=== PATIENT | male | born 1960 | race Caucasian/White ===

== ENCOUNTER 2017-11-02 19:53 | Inpatient (IN) | payer BC ==
[2017-11-02] MEDS ORDERED: ONDANSETRON 4 MG/2 ML VIAL IVP ONE (20:12)
--- NOTE | 2017-11-02 20:17 | EDPHY ---
H & P Time Seen by Provider: 11/02/17 19:56 HPI/ROS: CHIEF COMPLAINT: Nausea vomiting diarrhea HISTORY OF PRESENT ILLNESS: Patient just got back from [place] he was in [place]. He arrived 2 days ago. Patient started getting sick 5 days ago with multiple episodes of nausea vomiting and diarrhea. He said he received antibiotics including ciprofloxacin but continues to have symptoms today. He is also here because he has spasms in his hands and tingling and his upper extremities bilaterally. Continues to have moderate to severe vomiting and diarrhea. Not bloody or black. Symptoms associated with intermittent abdominal cramping. REVIEW OF SYSTEMS: Eye: no change in vision ENT: no sore throat Cardiac: no chest pain or syncope Pulmonary: no cough or SOB Abdomen: HPI Musculoskeletal: no back pain Skin: no rash Neuro: no headache Constitutional: no fever : no urinary symptoms A comprehensive 10 point review of systems is otherwise negative aside from elements mentioned in the history of present illness. PAST MEDICAL HISTORY: Surgery for diverticulitis and previous bowel obstruction. Appendectomy. Social history: Lives in [place], works as an internal medicine physician. General Appearance: Alert and conversant, cooperative. Eyes: No scleral icterus. ENT, Mouth: Dry mucous membranes. Respiratory: Normal respiratory effort, breath sounds equal, lungs are clear to auscultation. Cardiovascular: Regular rate and rhythm. Gastrointestinal: Abdomen is soft and non tender. Not distended, bowel sounds normal, well-healed midline incision. Does not have focal abdominal tenderness. Neurological: Alert and oriented x3. Normally conversant. Face symmetric, normal movement and sensation in all extremities. Some carpal spasms. Skin: Warm and dry, no rashes. Musculoskeletal: No peripheral edema and no joint swelling. Psychiatric: Not agitated. Emergency Department course/MDM: I-STAT creatinine 7, admit to [facility]. Patient says he got amikacin about 48 hr ago in [place]. Normal saline 2 L IV, more likely to be pre renal as the reason for his creatinine as he clinically is quite dehydrated. Hemoglobin and hematocrit also would be consistent with dehydration. 2101: Discussed with Angela for nephrology. Recommends IV hydration, bladder scan and renal ultrasound, will consult tomorrow. Bladder ultrasound negative for outlet obstruction, bladder not full. Smoking Status: Never smoked Constitutional: Initial Vital Signs Temperature (C) 36.5 C 11/02/17 19:55 Heart Rate 94 11/02/17 19:55 Respiratory Rate 18 11/02/17 19:55 Blood Pressure 124/80 H 11/02/17 19:55 O2 Sat (%) 99 11/02/17 19:55 O2 Delivery Mode Room Air Allergies/Adverse Reactions: Penicillins Allergy (Severe, Verified 11/02/17 20:03) Cephalosporins Allergy (Verified 11/02/17 20:03) shellfish derived [shrimp] Allergy (Verified 11/02/17 20:03) Sulfa (Sulfonamide Antibiotics) Allergy (Verified 11/02/17 20:03) vicro sutrues Allergy (Uncoded 11/02/17 20:03) Home Medications: Medication Instructions Recorded ASPIRIN 11/02/17 Cipro 11/02/17 Flomax 11/02/17 Losartan Potassium 11/02/17 Terazosin HCl 11/02/17 Wellbutrin Sr 11/02/17 Medical Decision Making Differential Diagnosis: Differential for nausea and vomiting considered including but not limited to gastroenteritis, bowel obstruction, metabolic, medication side effect - Data Points Laboratory Results: Laboratory Results 11/02/17 20:35 11/02/17 20:35 11/02/17 11/02/17 11/02/17 20:35 20:35 20:34 WBC 10.20 10^3/uL H 10^3/uL (3.80-9.50) RBC 6.88 10^6/uL H 10^6/uL (4.40-6.38) Hgb 21.0 g/dL H* g/dL (13.7-17.5) POC Hgb 21.4 gm/dL H* gm/dL (13.7-17.5) Hct 57.7 % H % (40.0-51.0) POC Hct 63 % H* % (40-51) MCV 83.9 fL fL (81.5-99.8) MCH 30.5 pg pg (27.9-34.1) MCHC 36.4 g/dL g/dL (32.4-36.7) RDW 15.3 % H % (11.5-15.2) Plt Count 263 10^3/uL 10^3/uL (150-400) MPV 11.0 fL fL (8.7-11.7) Neut % (Auto) 76.4 % H % (39.3-74.2) Lymph % (Auto) 12.2 % L % (15.0-45.0) [place] % (Auto) 10.2 % % (4.5-13.0) Eos % (Auto) 0.0 % L % (0.6-7.6) Baso % (Auto) 0.7 % % (0.3-1.7) Nucleat RBC Rel Count 0.0 % % (0.0-0.2) Absolute Neuts (auto) 7.80 10^3/uL H 10^3/uL (1.70-6.50) Absolute Lymphs (auto) 1.24 10^3/uL 10^3/uL (1.00-3.00) Absolute Monos (auto) 1.04 10^3/uL H 10^3/uL (0.30-0.80) Absolute Eos (auto) 0.00 10^3/uL L 10^3/uL (0.03-0.40) Absolute Basos (auto) 0.07 10^3/uL 10^3/uL (0.02-0.10) Absolute Nucleated RBC 0.00 10^3/uL 10^3/uL (0-0.01) Immature Gran % 0.5 % % (0.0-1.1) Immature Gran # 0.05 10^3/uL 10^3/uL (0.00-0.10) POC Sodium 132 mEq/L L mEq/L (134-144) Sodium 135 mEq/L mEq/L (134-144) POC Potassium 3.3 mEq/L mEq/L (3.3-5.0) Potassium 3.8 mEq/L mEq/L (3.5-5.2) POC Chloride 97 mEq/L mEq/L (97-110) Chloride 86 mEq/L L mEq/L (97-110) Carbon Dioxide 15 mEq/l L mEq/l (22-31) Anion Gap 34 mEq/L H mEq/L (8-16) POC BUN 66 mg/dL H mg/dL (7-23) BUN 68 mg/dL H mg/dL (7-23) Creatinine 6.6 mg/dL H mg/dL (0.7-1.3) POC Creatinine 7.0 mg/dL H mg/dL (0.7-1.3) Estimated GFR 9 Glucose 139 mg/dL H mg/dL (70-100) POC Glucose 138 mg/dL H mg/dL (70-100) Calcium 9.1 mg/dL mg/dL (8.5-10.4) Medications Given: Discontinued Medications Sodium Chloride (Ns) 1,000 mls @ 0 mls/hr IV EDNOW ONE; Wide Open PRN Reason: Protocol Stop: 11/02/17 20:45 Last Admin: 11/02/17 20:51 Dose: 1,000 mls Sodium Chloride (Ns) 1,000 mls @ 0 mls/hr IV EDNOW ONE; Wide Open PRN Reason: Protocol Stop: 11/02/17 20:45 Last Admin: 11/02/17 20:53 Dose: 1,000 mls Ondansetron HCl (Zofran) 4 mg IVP EDNOW ONE Stop: 11/02/17 20:13 Last Admin: 11/02/17 20:39 Dose: 4 mg Point of Care Test Results: 11/02/17 20:34 POC Sodium 132 L POC Potassium 3.3 POC Chloride 97 POC BUN 66 H POC Creatinine 7.0 H POC Glucose 138 H Departure - Departure Disposition: [facility] Inpatient Acute Clinical Impression: Dehydration Renal failure, acute Qualifiers: Acute renal failure type: unspecified Qualified Code(s): N17.9 - Acute kidney failure, unspecified Condition: Serious
[2017-11-02] MEDS ORDERED: NS 1,000 ML IV ONE ×2 (20:44)
[2017-11-02 20:48] LABS: % IMMATURE GRANULYOCYTES 0.5 % (0.0-1.1); ABSOLUTE IMMATURE GRANULOCYTES 0.05 10^3/uL (0.00-0.10); ADD DIFF? NO; ADD MORPH? NO; ADD SCAN? NO; FRAGMENT RBC FLAG 0 (0-99); LIPEMIA HEMOLYSIS FLAG 90 (0-99); MEAN CELL VOLUME 83.9 fL (81.5-99.8); PLATELET CLUMPS FLAG 0 (0-99); RED CELL DISTRIBUTION WIDTH 15.3 % (11.5-15.2)
[2017-11-02 21:02] LABS: ATYPICAL LYMPHOCYTE FLAG 0 (0-99); HEMATOCRIT 57.7 % (40.0-51.0); LEFT SHIFT FLG 20 (0-99); MEAN CELL HEMOGLOBIN 30.5 pg (27.9-34.1); MEAN CELL HEMOGLOBIN CONCENTR. 36.4 g/dL (32.4-36.7); PLATELET COUNT 263 10^3/uL (150-400); RED BLOOD CELL COUNT 6.88 10^6/uL (4.40-6.38)
[2017-11-02 21:07] LABS: ANION GAP 34 mEq/L (8-16); CALCIUM 9.1 mg/dL (8.5-10.4); CARBON DIOXIDE 15 mEq/l (22-31); CHLORIDE 86 mEq/L (97-110); CREATININE 6.6 mg/dL (0.7-1.3); GLOMERULAR FILTRATION RATE 9; GLUCOSE 139 mg/dL (70-100); POTASSIUM 3.8 mEq/L (3.5-5.2); SODIUM 135 mEq/L (134-144)
[2017-11-02] MEDS ORDERED: ONDANSETRON DISINTEGRATING 4 MG TAB PO PRN (21:37)
[2017-11-02 22:28] LABS: ALBUMIN 5.5 g/dL (3.5-5.0); BILIRUBIN,TOTAL 1.2 mg/dL (0.1-1.4); BILIRUBIN-CONJUGATED 0.9 mg/dL (0.0-0.5); BILIRUBIN-UNCONJUGATED 0.3 mg/dL (0.0-1.1); TOTAL PROTEIN 10.4 g/dL (6.3-8.2)
[2017-11-02] MEDS: HEPARIN 5,000 UNIT/0.5 ML SYR SC SCH (22:46)
[2017-11-02] MEDS: NS 1,000 ML IV SCH (22:46)
[2017-11-02] MEDS: ONDANSETRON 4 MG/2 ML VIAL IVP PRN (22:52)
--- NOTE | 2017-11-02 22:52 | GHP ---
[f rep st] HISTORY AND PHYSICAL DATE OF ADMISSION: 11/02/2017 CHIEF COMPLAINT: LEOPOLDO, diarrhea. 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 He was vacationing in [place] and was flying back today. Normally breaks up the trip here in [place]. He started getting sick approximately 5 days ago with multiple episodes of nausea, vomiting, diarrhea. He says he has been having pungent watery diarrhea up to 30 times a day. No blood in stool. Associated with crampy abdominal pain. Was having excessive vomiting, but now dry heaving. Has had minimal p.o. intake; had some Cheerios today. Has tolerated some Pedialyte and Coca-Cola. He thinks it was due to chicken he ate one evening that appeared to be a little red. At the hotel he was prescribed a dose of IM amikacin 750 mg and has taken 3 doses of Cipro. He has been using Phenergan p.r.n. He does have a history of IBS, thus mostly loose stools. No constipation. No dizziness, lightheadedness. No chest pain or shortness of breath. No lower extremity edema. REVIEW OF SYSTEMS: I completed a 10-point review of systems, negative except as noted in the History of Present Illness. PAST MEDICAL HISTORY: 1. 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 Residual left hand and foot numbness. 2. History of perforated diverticulitis. 3. Tinnitus. 4. Benign prostatic hypertrophy. PAST SURGICAL HISTORY: 1. Perforated diverticulitis requiring ileostomy that was reversed. 2. Small-bowel obstructions 4-5 times requiring adhesiolysis on multiple occasions. FAMILY HISTORY: Mother committed suicide after having metastatic lung cancer. Paternal grandmother, history of colon cancer. SOCIAL HISTORY: He is an crm marketing executive. Lives in [place], [place]. No tobacco. Occasional alcohol. No drugs. ALLERGIES: Penicillin (severe), cephalosporin, shellfish, sulfa, Vicryl sutures. MEDICATION: Home medications: Wellbutrin 300 mg daily, losartan 100 mg daily, simvastatin 200 mg daily, Flomax, daily aspirin. PHYSICAL EXAMINATION: VITAL SIGNS: Temperature 36.5, blood pressure 130/75, heart rate 80s, respirations 16, 94% on room air. GENERAL: Well-appearing male , lying in bed, no acute distress. HEENT: PERRLA. Dry mucous membranes. CV: Regular rate and rhythm. No murmurs, gallops, or rubs. No lower extremity edema. LUNGS: Clear. No crackles, wheezing. ABDOMEN: Mildly diffuse, greater in the right lower quadrant but no rebound or guarding. : No suprapubic or CVA tenderness. MUSCULOSKELETAL: 5/5 upper lower extremity strength. NEURO: 2 through 12 intact. PSYCH: Alert, oriented x3. Pleasant. LABS: Sodium 135, potassium 3.8, chloride 86, carbon dioxide 15, anion gap 34, BUN 68, creatinine 6.6, glucose 139, calcium 9.1. WBC 10, hemoglobin 21, hematocrit 57, platelets 263. Abdominal ultrasound: Normal. No hydronephrosis. ASSESSMENT/PLAN: 1. Acute kidney injury: Multifactorial given prerenal etiology with severe dehydration with nausea, vomiting, along with amikacin. His electrolytes are within normal. Will monitor on telemetry and check EKG. Dr. Miller with Nephrology was consulted from the emergency room. Renal ultrasound was negative for hydro. Nephrology will consult in the morning. No evidence of volume overload, stable on room air. Check urine lytes. 2. Polycythemia: Hemoglobin significantly elevated. This is likely secondary to severe dehydration. Will hydrate overnight and repeat in the morning. 3. Bbenign prostatic hypertrophy. Resume Flomax when tolerating p.o. 4. Tinnitus: Takes Wellbutrin. 5. Diarrhea: GI panel is pending, p.r.n. Imodium if C diff negative. 6. Nausea, vomiting: PRN Zofran, Phenergan. Diet: Clears; advance as tolerated. 7. Hypertension: Hold losartan with acute kidney injury. 8. History of perforated diverticulitis. 9. Deep venous thrombosis prophylaxis: Subcu heparin with acute kidney injury. DISPOSITION: Patient warrants inpatient admission given severe LEOPOLDO warranting IV hydration, telemetry and nephrology consult. /[id number]/MODL MTDD
[2017-11-02 23:32] LABS: COLOR AMBER; LEUKOCYTE ESTERASE,URINE NEGATIVE (NEGATIVE); NITRITE,URINE NEGATIVE (NEGATIVE)
[2017-11-03 00:01] LABS: MUCUS 2+ /lpf (NONE-1+); RBC,URINE 50-182 /hpf (0-3); WBC,URINE 15-25 /hpf (0-3)
[2017-11-03 00:02] LABS: HYALINE CASTS >182 /lpf (0-1)
[2017-11-03] MEDS: ACETAMINOPHEN 325 MG TAB PO PRN (01:31)
[2017-11-03] MEDS: PROMETHAZINE HCL 25 MG/ML INJ IVP PRN ×4 (01:32→21:06)
[2017-11-03 05:33] LABS: HEMATOCRIT 49.5 % (40.0-51.0); MEAN CELL HEMOGLOBIN 30.3 pg (27.9-34.1); MEAN CELL HEMOGLOBIN CONCENTR. 36.4 g/dL (32.4-36.7); MEAN CELL VOLUME 83.2 fL (81.5-99.8); RED BLOOD CELL COUNT 5.95 10^6/uL (4.40-6.38); RED CELL DISTRIBUTION WIDTH 14.4 % (11.5-15.2)
[2017-11-03 05:41] LABS: ANION GAP 22 mEq/L (8-16); CALCIUM 7.4 mg/dL (8.5-10.4); CARBON DIOXIDE 17 mEq/l (22-31); CHLORIDE 97 mEq/L (97-110); CREATININE 4.1 mg/dL (0.7-1.3); GLOMERULAR FILTRATION RATE 15; GLUCOSE 116 mg/dL (70-100); MAGNESIUM 1.9 mg/dL (1.6-2.3); POTASSIUM 3.3 mEq/L (3.5-5.2); SODIUM 136 mEq/L (134-144)
[2017-11-03] MEDS: NS 1,000 ML IV SCH ×2 (06:08→14:22)
[2017-11-03] MEDS: HEPARIN 5,000 UNIT/0.5 ML SYR SC SCH ×3 (06:08→21:06)
[2017-11-03] MEDS: ONDANSETRON 4 MG/2 ML VIAL IVP PRN ×3 (06:08→18:06)
--- NOTE | 2017-11-03 07:14 | PDMN ---
Medical Necessity Medical necessity: Pt meets INPT criteria per MD and [facility] M-326 Renal Failure, Acute (creatinine 6.6, BUN 68, severe acute kidney injury with severe dehydration, N/V/D, polycythemia; requiring IVF 125/hr, IV antiemetics per H&P).
--- NOTE | 2017-11-03 09:51 | ASMTCMCOM ---
CM Note CM Note Notes: Patient admitted with LEOPOLDO, likely due to severe dehydration. 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 Nephrology to see today. Will likely discharge independently, no therapies or case management ordered; however, case management can assist with any needs. Date Signed: 11/03/2017 09:51 AM Electronically Signed By:Crystal Rutherford RN
[2017-11-03] MEDS: buPROPion XL 150 MG TAB PO SCH (15:42)
--- NOTE | 2017-11-03 16:16 | HOSPPROG ---
Hospitalist Progress Note Assessment/Plan: Assessment: 57-year-old male presents with acute renal failure in the setting of bacterial enteritis Plan: 1. Acute renal failure. Secondary to hypovolemia in the setting of traumatic volume losses from bacterial enteritis, fraction excretion of sodium 0.6% -renal ultrasound demonstrating no hydronephrosis -initial creatinine 7, downtrend 4.1 today -discussed with Dr. Chris Miller, he has recommended continuing IV fluids to replace ongoing volume losses -counseled the patient and his friends regarding the diagnosis and appropriate treatment plan 2. Bacterial enteritis. Secondary to Salmonella and 2 different E coli organisms, most likely secondary to fecal oral transfer during his recent trip in [place] -discussed with Dr. Simone Cano, he has recommended 7 days of for quinolone treatment given the patient's high severity of illness, initiate levofloxacin 750 mg IV Q 48 hr now -patient is still high risk of worsening morbidity and/or mortality given ongoing volume losses, 8 watery bowel movements thus far, continue IV fluids to replace volume losses -okay for patient to consume solids and liquids, avoid lactose and other potentially diarrhea provoking food types -avoid Imodium -symptomatic antiemetics, abdominal pain medications if needed 3. Metabolic acidosis. Acute, secondary to renal failure and hypokalemia, continue IV normal saline and monitor 4. Acute hyponatremia. Secondary to hypovolemia, continue IV normal saline 5. Hypokalemia. Avoid replacement in the setting of renal failure 6. Acute polycythemia. Secondary to hemoconcentration, monitor hemoglobin level 7. Transaminitis. Acute, potentially secondary to infection, continue to monitor Diet. Regular as tolerated Prophylaxis. High risk patient heparin subcu Code. Full Disposition. Anticipated discharge uncertain this time, requires ongoing inpatient hospitalization for ongoing substantial volume losses and ongoing renal failure. Subjective: Patient with his 9th watery bowel movement today Objective: Vital Signs Temp Pulse Resp BP Pulse Ox 36.6 C 65 20 134/80 H 94 11/03/17 15:51 11/03/17 15:51 11/03/17 15:51 11/03/17 15:51 11/03/17 15:51 Microbiology 11/02/17 23:10 Gastrointestinal Tract Panel (PCR) - Final Stool Salmonella Species E.coli Enteropathogenic(Epec) E.coli Enteroaggregative(Eaec) Laboratory Results 11/03/17 05:00 11/03/17 05:00 11/02/17 11/03/17 11/04/17 05:59 05:59 05:59 Intake Total 1000 2725 Output Total 600 Balance 1000 2125 - Time Spent With Patient Time Spent with Patient: greater than 35 minutes Time Spent with Patient: Greater than 35 minutes spent on this patients care, greater than 50% of time spent counseling, educating, and coordinating care regarding the above mentioned plan. - Physical Exam Constitutional: no apparent distress, not in pain, uncomfortable Cardiovascular: regular rate and rhythym, no murmur, rub, or gallop, No edema Respiratory: no respiratory distress, no rales or rhonchi, clear to auscultation Gastrointestinal: tenderness (Mild to moderate palpation), other ( Hyperactive bowel sounds), No guarding, No distension Skin: other (No skin tenting) Neurologic: AAOx3 Psychiatric: interacting appropriately, not anxious, not encephalopathic, thought process linear ICD10 Worksheet Patient Problems: Problems Problem Status Onset Renal failure, acute Acute Dehydration Acute
--- NOTE | 2017-11-03 17:34 | GCON ---
[f rep st] CONSULTATION NEPHROLOGY CONSULTATION DATE OF CONSULTATION: 11/03/2017 REASON FOR CONSULTATION: Acute renal failure. HPI: I have been asked to evaluate this patient regarding his acute renal failure. 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 While there, he developed severe GI illness, m ainly consisting of profuse watery diarrhea, but also with some accompanying nausea and vomiting and abdominal discomfort. He recalls this began 5 days ago and has been unrelenting. He was treated wit h antibiotics in [place], initially with Cipro, but then he did also receive an IM dose of amikacin. He takes losartan chronically, but held this due to his illness. He denies any lightheadedness or di zziness with standing, but did have severe muscle cramping. He was traveling home to [place] through [place] and due to the ongoing nature of his illness, sought medical attention yesterday evening in [facility] emergency department. Here, he was found to have a creatinine of 7 with fairly n ormal electrolytes. His blood pressure has been normal, but his hemoglobin was elevated at 21.4. He received 2 or 3 L of saline in the ER and since then has been receiving normal saline at 125 cc/hour . His creatinine early this morning, less than 9 hours after his initial labs, was down to 4.1. He has been nonoliguric today, though tells me this afternoon that he believes his urine output has dimi nished over the course of the afternoon in conjunction with an increase in his diarrhea. Renal ultra sound performed last night was negative for hydronephrosis. A fractional excretion of sodium was 0.6 %. Urinalysis was positive for both protein and blood, but also notable for a large number of epithe lial cells, hyaline casts, and mucus. He does recall very little urine output for the past 2 days pr ior to presentation. He did take some NSAIDs, though not in nearly as large a quantity as he would jessi wilson liked. He denies any previous history of renal disease, but believes he likely passed a kidney s tone on one occasion remotely. He checks his own creatinine twice annually, and it has been 0.9 as r ecently as June. Stool cultures are positive for Salmonella and E coli, and he has been started on L evaquin. Of note, his most recent hemoglobin is 18 with a platelet count of 231. He denies any purp uric or petechial skin lesions. Overall, he is feeling much better than on arrival, aside from his o ngoing diarrhea. PAST MEDICAL HISTORY: 1. History of perforated diverticulitis, status post hemicolectomy. 2. Benign prostatic hypertrophy. 3. History of meningeal encephalitis with some residual numbness in his left hand and foot. 4. Small bowel obstructions, he has required lysis of adhesions on occasion. 5. No history of hypertension, though he is treating himself with losartan and Lipitor due to family history of cardiac disease. His typical blood pressure on losartan is 120/80. PAST SURGICAL HISTORY: 1. Hemicolectomy with ileostomy creation secondary to perforated diverticulitis. 2. Multiple exploratory laparotomies with lysis of adhesions related to small bowel obstructions. ALLERGIES: Penicillin, cephalosporins, shellfish, IV dye and sulfa. ADMISSION MEDICATIONS: Wellbutrin, losartan, simvastatin, Flomax and aspirin. As noted above, he he ld his losartan and Flomax during the course of his GI illness. SOCIAL HISTORY: He currently lives in [place], but is originally from [facility]. He is an inter [employer], but also did a residency in psychiatry and a fellowship in geriatrics. He is a nonsmoker and d oes not use illicit drugs. He does drink alcohol occasionally. He is planning to retire in May of next year. FAMILY HISTORY: No family history of renal disease that he is aware of. REVIEW OF SYSTEMS: Positive for rigors with the initiation of his illness. Positive for severe musc le cramps yesterday prior to coming to the hospital, these have resolved. He denies any blood in his stools. His urine output has been minimal prior to his presentation. Aside from other positives in the HPI, the remainder of a 10-organ system review is negative. PHYSICAL EXAM: GENERAL: He is well-appearing, in no acute distress. VITAL SIGNS: Blood pressure 1 34/80, heart rate 65, oxygenation is 94% on room air. He is afebrile. HEENT: Sclerae anicteric. O ral mucosa is moist. NECK: Supple, without JVD or lymphadenopathy. There are no carotid bruits. L UNGS: Completely clear to auscultation bilaterally. BACK: No CVA tenderness. HEART: Regular rate and rhythm; without murmurs, gallops or rubs. ABDOMEN: Soft. Perhaps mildly tender to deep palpat ion, mainly in the right lower quadrant. I do not appreciate hepatosplenomegaly, masses or bruits. EXTREMITIES: There is no lower extremity edema. Pedal pulses are palpable bilaterally. SKIN: Ther e are no skin rashes. NEURO: He is awake, alert and appropriate. There is no facial droop. : F oley catheter is absent. LABS: Sodium 136, potassium 3.3, chloride 97, CO2 17, BUN 69, creatinine 4.1, glucose 16, calcium 7. 4, phosphorus 6.8, magnesium 1.9. Yesterday evening, his serum albumin was 5.5 with a total protein of 10.4, AST 107, ALT 91, total bilirubin was 1.2. His white blood cell count is 9.0, hemoglobin 18. 0, platelets 231. Random urine sodium was 29 with random urine creatinine 247. Urinalysis last h t demonstrates specific gravity 1.017, pH 5.0, 2+ protein, 3+ blood, negative ketones, 50-180 red blo od cells, 15-25 white blood cells, 2+ epithelial cells, 2+ mucus, and greater than 182 hyaline casts. IMPRESSION AND PLAN: 1. Acute renal failure: He has prerenal urinary indices, and his creatinine has decreased significa ntly after just a few hours of intravenous fluids. He is nonoliguric, though his urine output has ap parently decreased earlier today. He was clearly severely volume depleted on presentation, and I morris pect the primary issue is prerenal azotemia, though he may certainly have an element of superimposed ischemic acute tubular necrosis as well. I would continue his current rate of IV fluids for now, as he does not appear at all volume overloaded and is continuing to have diarrhea. There was no evidenc e of obstruction or urinary retention on his ultrasound. I suspect the hematuria and proteinuria on his initial urinalysis were artifactual, as the sediment appeared dirty. I would repeat this after h is urine clears up. At this time, there is no evidence of a microangiopathic hemolytic anemia, and I do not think hemolytic uremic syndrome is playing a role in his presentation. I would not send a se rologic evaluation at this time. I do expect him to recover completely, though if he does have any e lement of acute tubular necrosis, this could take a few weeks to return to his previous baseline cremeliza pritchett. He should continue to hold his losartan until he returns to his baseline. 2. Diarrhea: This continues to be fairly profuse, and stool cultures are positive. He has been sta rted on antibiotic therapy. I do not see any evidence of microangiopathic hemolytic anemia, as noted above. 3. Metabolic acidosis: This is improving, and I would expect it to continue to improve as his renal failure resolves. Interestingly, he did have a significant anion gap on presentation, which is clos ing. Urine ketones were negative, but I do suspect he may have had an element of ketosis as well as lactic acidosis due to volume depletion and lack of oral intake. I expect this to continue to resolv e. 4. Hypokalemia: I would replace this on an as-needed basis. Thank you for the consultation. We will follow with you. /[id number]/MODL
[2017-11-03] MEDS: PRESERVISION AREDS2 FORMULA EYE VIT 1 EACH PO SCH (21:07)
[2017-11-03] MEDS: TAMSULOSIN HCL 0.4 MG CAP PO SCH (21:07)
[2017-11-03] MEDS: TERAZOSIN HCL 5 MG CAP PO SCH (21:07)
[2017-11-03] MEDS: PANTOPRAZOLE SODIUM 40 MG TAB PO SCH (21:07)
[2017-11-04 05:18] LABS: % IMMATURE GRANULYOCYTES 0.6 % (0.0-1.1); ABSOLUTE IMMATURE GRANULOCYTES 0.04 10^3/uL (0.00-0.10); ADD DIFF? NO; ADD MORPH? NO; ADD SCAN? NO; ATYPICAL LYMPHOCYTE FLAG 60 (0-99); FRAGMENT RBC FLAG 0 (0-99); HEMATOCRIT 44.2 % (40.0-51.0); HEMOGLOBIN 15.6 g/dL (13.7-17.5); LEFT SHIFT FLG 0 (0-99); LIPEMIA HEMOLYSIS FLAG 90 (0-99); MEAN CELL HEMOGLOBIN 29.5 pg (27.9-34.1); MEAN CELL HEMOGLOBIN CONCENTR. 35.3 g/dL (32.4-36.7); MEAN CELL VOLUME 83.7 fL (81.5-99.8); MEAN PLATELET VOLUME 10.7 fL (8.7-11.7); PLATELET CLUMPS FLAG 0 (0-99); PLATELET COUNT 195 10^3/uL (150-400); RED BLOOD CELL COUNT 5.28 10^6/uL (4.40-6.38); RED CELL DISTRIBUTION WIDTH 14.2 % (11.5-15.2)
[2017-11-04 05:40] LABS: ALANINE AMINOTRANSFERASE 80 IU/L (21-72); ALBUMIN 3.3 g/dL (3.5-5.0); ALKALINE PHOSPHATASE 69 IU/L (38-126); ANION GAP 15 mEq/L (8-16); ASPARTATE AMINOTRANSFERASE 76 IU/L (17-59); BILIRUBIN,TOTAL 0.7 mg/dL (0.1-1.4); CALCIUM 7.9 mg/dL (8.5-10.4); CARBON DIOXIDE 19 mEq/l (22-31); CHLORIDE 105 mEq/L (97-110); CREATININE 1.6 mg/dL (0.7-1.3); GLOMERULAR FILTRATION RATE 45; GLUCOSE 117 mg/dL (70-100); POTASSIUM 3.2 mEq/L (3.5-5.2); SODIUM 139 mEq/L (134-144); TOTAL PROTEIN 6.2 g/dL (6.3-8.2)
[2017-11-04] MEDS: HEPARIN 5,000 UNIT/0.5 ML SYR SC SCH ×3 (06:26→21:32)
[2017-11-04] MEDS: ONDANSETRON 4 MG/2 ML VIAL IVP PRN ×2 (08:27→16:29)
[2017-11-04] MEDS: CHOLECALCIFEROL VIT D3 1,000 UNITS TAB PO SCH (08:29)
[2017-11-04] MEDS: PANTOPRAZOLE SODIUM 40 MG TAB PO SCH ×2 (08:29→21:32)
[2017-11-04] MEDS: buPROPion XL 150 MG TAB PO SCH (08:29)
[2017-11-04] MEDS: MULTIVITAMINS 1 EACH TAB PO SCH (08:29)
[2017-11-04] MEDS ORDERED: POTASSIUM CL 20 MEQ TAB PO ONE (10:12)
--- NOTE | 2017-11-04 10:17 | SOAPPROG ---
SOAP Progress Note Assessment/Plan: Assessment/Plan: LEOPOLDO: likely prerenal, has improved markedly in two days with IVFs with Cr down from 7.0 -> 1.6 today. - No need for HD. - Expect him to make close to full recovery. - Would continue IVFs for now as long as pt is having significant diarrhea. - Will recheck urinalysis. - Will continue to monitor. - Avoid hypotension and nephrotoxins. Hypokalemia: K 3.2, will give KCl 40meq x1 today and continue to monitor. Metabolic acidosis: likely due to LEOPOLDO and diarrhea, improving, will continue to monitor. VIVI: Phos 6.8 when last checked, will recheck tomorrow. Subjective: No acute events overnight. Pt states that he is still having nausea and diarrhea, had 27 BMs yesterday. Objective: Vital Signs Temp Pulse Resp BP Pulse Ox 36.4 C 78 19 127/72 H 94 11/04/17 07:37 11/04/17 07:37 11/04/17 07:37 11/04/17 07:37 11/04/17 07:37 Microbiology 11/02/17 23:10 Gastrointestinal Tract Panel (PCR) - Final Stool Salmonella Species E.coli Enteropathogenic(Epec) E.coli Enteroaggregative(Eaec) Laboratory Results 11/04/17 04:56 11/04/17 04:56 11/03/17 11/04/17 11/05/17 05:59 05:59 05:59 Intake Total 1000 3175 Output Total 1000 Balance 1000 2175 General: alert and oriented, no acute distress Eyes: EOMI, PERRL OP: Clear CV: RRR Resp: nonlabored respirations Abd: Soft, nondistended Ext: no edema BLE Neuro: CN II-XII grossly intact, no asterixis Psych: cooperative, appropriate mood and affect ICD10 Worksheet Patient Problems: Problems Problem Status Onset Dehydration Acute Renal failure, acute Acute
[2017-11-04] MEDS: ACETAMINOPHEN 325 MG TAB PO PRN ×2 (10:31→19:37)
[2017-11-04 14:15] LABS: COLOR YELLOW; LEUKOCYTE ESTERASE,URINE NEGATIVE (NEGATIVE); NITRITE,URINE NEGATIVE (NEGATIVE)
[2017-11-04 15:46] LABS: ALBUMIN 3.1 g/dL (3.5-5.0); ANION GAP 16 mEq/L (8-16); CARBON DIOXIDE 18 mEq/l (22-31); CHLORIDE 106 mEq/L (97-110); CREATININE 1.3 mg/dL (0.7-1.3); GLOMERULAR FILTRATION RATE 57; GLUCOSE 126 mg/dL (70-100); POTASSIUM 3.3 mEq/L (3.5-5.2); SODIUM 140 mEq/L (134-144)
--- NOTE | 2017-11-04 19:37 | HOSPPROG ---
Hospitalist Progress Note Assessment/Plan: Assessment: 57-year-old male presents with acute renal failure in the setting of polymicrobial bacterial enteritis Plan: 1. Acute renal failure. Secondary to hypovolemia in the setting of traumatic volume losses from bacterial enteritis, fraction excretion of sodium 0.6% -renal ultrasound demonstrating no hydronephrosis -initial creatinine 7, downtrend 1.6 and anticipate full renal recovery -appreciate ongoing renal consult, given 40mEq K today given osmotic diuresis 2. Bacterial enteritis. Secondary to Salmonella and 2 different E coli organisms, most likely secondary to fecal oral transfer during his recent trip in [place] -cont levoflox for total 7 days, adjusted dosing today -patient is still high risk of worsening morbidity and/or mortality given ongoing volume losses, 10 watery bowel movements thus far, continue IV fluids to replace volume losses -okay for patient to consume solids and liquids, avoid lactose and other potentially diarrhea provoking food types -avoid Imodium -symptomatic antiemetics, abdominal pain medications if needed -d/w micro lab per patient request, speciation of salmonella underway 3. Metabolic acidosis. Acute, secondary to renal failure and hypokalemia, continue IV normal saline and monitor 4. Acute hyponatremia. Secondary to hypovolemia, continue IV normal saline 5. Hypokalemia. Given 40mEq today 6. Acute polycythemia. Secondary to hemoconcentration, monitor hemoglobin level 7. Transaminitis. Acute, potentially secondary to infection, continue to monitor Diet. Regular as tolerated Prophylaxis. High risk patient heparin subcu Code. Full Disposition. Anticipated discharge uncertain this time, requires ongoing inpatient hospitalization for ongoing substantial volume losses and ongoing renal failure. Subjective: patient w/ ongoing watery BMs, poor appetite Objective: Vital Signs Temp Pulse Resp BP Pulse Ox 36.7 C 69 16 114/61 93 11/04/17 15:43 11/04/17 15:43 11/04/17 15:43 11/04/17 15:43 11/04/17 15:43 Microbiology 11/02/17 23:10 Gastrointestinal Tract Panel (PCR) - Final Stool Salmonella Species E.coli Enteropathogenic(Epec) E.coli Enteroaggregative(Eaec) Laboratory Results 11/04/17 04:56 11/04/17 15:10 11/03/17 11/04/17 11/05/17 05:59 05:59 05:59 Intake Total 1000 3175 550 Output Total 1000 Balance 1000 2175 550 - Physical Exam Constitutional: no apparent distress, not in pain, uncomfortable, No chronically ill appearing Cardiovascular: regular rate and rhythym, no murmur, rub, or gallop, No edema Respiratory: no respiratory distress, no rales or rhonchi, clear to auscultation , No respiratory distress Gastrointestinal: tenderness (mild throughout), other (tympanic w/ hyperactive bowel sounds), No guarding, No distension Neurologic: AAOx3, sensation intact bilaterally, No weakness Psychiatric: interacting appropriately, not anxious, not encephalopathic, thought process linear ICD10 Worksheet Patient Problems: Problems Problem Status Onset Renal failure, acute Acute Dehydration Acute
[2017-11-04] MEDS: TAMSULOSIN HCL 0.4 MG CAP PO SCH (21:32)
[2017-11-04] MEDS: PRAVASTATIN SODIUM 20 MG TAB PO SCH (21:32)
[2017-11-04] MEDS: PRESERVISION AREDS2 FORMULA EYE VIT 1 EACH PO SCH (21:32)
[2017-11-04] MEDS: TERAZOSIN HCL 5 MG CAP PO SCH (21:32)
[2017-11-05 06:00] LABS: ABSOLUTE IMMATURE GRANULOCYTES 0.07 10^3/uL (0.00-0.10); ADD DIFF? NO; ADD MORPH? NO; ADD SCAN? YES; FRAGMENT RBC FLAG 0 (0-99); HEMATOCRIT 41.1 % (40.0-51.0); HEMOGLOBIN 14.4 g/dL (13.7-17.5); LEFT SHIFT FLG 0 (0-99); LIPEMIA HEMOLYSIS FLAG 90 (0-99); MEAN CELL HEMOGLOBIN 29.6 pg (27.9-34.1); MEAN CELL VOLUME 84.4 fL (81.5-99.8); MEAN PLATELET VOLUME 11.1 fL (8.7-11.7); PLATELET CLUMPS FLAG 0 (0-99); PLATELET COUNT 196 10^3/uL (150-400); RED BLOOD CELL COUNT 4.87 10^6/uL (4.40-6.38); RED CELL DISTRIBUTION WIDTH 14.5 % (11.5-15.2)
[2017-11-05 06:02] LABS: ATYPICAL LYMPHOCYTE FLAG 150 (0-99)
[2017-11-05 06:10] LABS: ALANINE AMINOTRANSFERASE 76 IU/L (21-72); ALBUMIN 3.2 g/dL (3.5-5.0); ALKALINE PHOSPHATASE 74 IU/L (38-126); ANION GAP 14 mEq/L (8-16); ASPARTATE AMINOTRANSFERASE 58 IU/L (17-59); BILIRUBIN,TOTAL 0.4 mg/dL (0.1-1.4); CALCIUM 8.2 mg/dL (8.5-10.4); CARBON DIOXIDE 20 mEq/l (22-31); CHLORIDE 110 mEq/L (97-110); CREATININE 1.2 mg/dL (0.7-1.3); GLOMERULAR FILTRATION RATE > 60; GLUCOSE 97 mg/dL (70-100); POTASSIUM 3.4 mEq/L (3.5-5.2); SODIUM 144 mEq/L (134-144); TOTAL PROTEIN 5.8 g/dL (6.3-8.2)
[2017-11-05 06:33] LABS: SCAN NEGATIVE
[2017-11-05] MEDS: HEPARIN 5,000 UNIT/0.5 ML SYR SC SCH ×3 (06:36→21:38)
[2017-11-05] MEDS: NS 1,000 ML IV SCH (07:12)
[2017-11-05] MEDS ORDERED: PROMETHAZINE HCL 25 MG TAB PO PRN (09:49)
[2017-11-05] MEDS ORDERED: POTASSIUM CL 20 MEQ TAB PO ONE (09:49)
[2017-11-05] MEDS: MULTIVITAMINS 1 EACH TAB PO SCH (10:30)
[2017-11-05] MEDS: PANTOPRAZOLE SODIUM 40 MG TAB PO SCH ×2 (10:30→21:39)
[2017-11-05] MEDS: CHOLECALCIFEROL VIT D3 1,000 UNITS TAB PO SCH (10:30)
[2017-11-05] MEDS: buPROPion XL 150 MG TAB PO SCH (10:30)
[2017-11-05] MEDS: ACETAMINOPHEN 325 MG TAB PO PRN ×2 (10:43→14:51)
--- NOTE | 2017-11-05 10:54 | HOSPPROG ---
Hospitalist Progress Note Assessment/Plan: Assessment: 57-year-old male presents with acute renal failure in the setting of polymicrobial bacterial enteritis Plan: 1. Acute renal failure. Secondary to hypovolemia in the setting of traumatic volume losses from bacterial enteritis, resolving -given 20mEq K today given osmotic diuresis -cont IVF at 100cc/hr, reduce to 50cc/hr if BMs significantly slowing 2. Bacterial enteritis. Secondary to Salmonella and 2 different E coli organisms, most likely secondary to fecal oral transfer during his recent trip in [place] -cont levoflox for total 7 days -okay for patient to consume solids and liquids, avoid lactose and other potentially diarrhea provoking food types -avoid Imodium -symptomatic antiemetics, abdominal pain medications if needed, transitioning to oral agents today and gauge effect -d/w micro lab per patient request, speciation of salmonella underway 3. Metabolic acidosis. Acute, secondary to renal failure and hypokalemia, continue IV normal saline and monitor 4. Acute hyponatremia. Secondary to hypovolemia, continue IV normal saline 5. Hypokalemia. Given 20mEq today 6. Acute polycythemia. Secondary to hemoconcentration, monitor hemoglobin level 7. Transaminitis. Acute, potentially secondary to infection, continue to monitor Diet. Regular as tolerated Prophylaxis. High risk patient heparin subcu Code. Full Disposition. Anticipated discharge 11/06, pending stabilization of BMs and no longer requiring IVF Subjective: patient reports negligible response to PO zofran, reduction in BMs this AM, poor oral intake persists Objective: Vital Signs Temp Pulse Resp BP Pulse Ox 36.4 C 71 24 H 140/68 H 94 11/05/17 07:53 11/05/17 07:53 11/05/17 07:53 11/05/17 07:53 11/05/17 07:53 Microbiology 11/02/17 23:10 Gastrointestinal Tract Panel (PCR) - Final Stool Salmonella Species E.coli Enteropathogenic(Epec) E.coli Enteroaggregative(Eaec) Laboratory Results 11/05/17 04:54 11/05/17 04:54 11/04/17 11/05/17 11/06/17 05:59 05:59 05:59 Intake Total 3175 550 Output Total 1000 Balance 2175 550 - Pending Discharge Pending Discharge Within 24 Hours: Yes Pending Discharge Date: 11/06/17 Pending Discharge Time: 11:00 - Physical Exam Constitutional: no apparent distress, appears nourished, not in pain Cardiovascular: regular rate and rhythym, no murmur, rub, or gallop, No edema Respiratory: no respiratory distress, no rales or rhonchi, clear to auscultation Gastrointestinal: normoactive bowel sounds, soft, non-tender abdomen, no palpable masses, No guarding, No distension Neurologic: AAOx3, No weakness Psychiatric: interacting appropriately, not anxious, not encephalopathic, thought process linear ICD10 Worksheet Patient Problems: Problems Problem Status Onset Renal failure, acute Acute Dehydration Acute
[2017-11-05] MEDS: HYOSCYAMINE SULFATE 0.125 MG TAB PO PRN (11:27)
--- NOTE | 2017-11-05 12:13 | SOAPPROG ---
SOAP Progress Note Assessment/Plan: Assessment: 1. Hemodynamic LEOPOLDO Resolved. Will decrease IVF rate. 2. HTN Would wait to resume ARB until after his diarrhea resolved 3. Infectious Diarrhea On Levaquin. Diarrhea persists at this point. 4. Hypokalemia Add K to IV. We will sign off. Thanks. Plan: 11/05/17 12:10 Subjective: Doing some better Objective: Vital Signs Temp Pulse Resp BP Pulse Ox 36.6 C 70 16 140/78 H 96 11/05/17 11:09 11/05/17 11:09 11/05/17 11:09 11/05/17 11:09 11/05/17 11:09 Microbiology 11/02/17 23:10 Gastrointestinal Tract Panel (PCR) - Final Stool Salmonella Species E.coli Enteropathogenic(Epec) E.coli Enteroaggregative(Eaec) Laboratory Results 11/05/17 04:54 11/05/17 04:54 11/04/17 11/05/17 11/06/17 05:59 05:59 05:59 Intake Total 3175 550 Output Total 1000 Balance 2175 550 Physical Exam - Physical Exam General Appearance: no apparent distress Respiratory: lungs clear Cardiac/Chest: regular rate, rhythm Abdomen: soft Extremities: normal inspection Neuro/Psych: oriented x 3 ICD10 Worksheet Patient Problems: Problems Problem Status Onset Dehydration Acute Renal failure, acute Acute
[2017-11-05] MEDS ORDERED: NS W/ 20 KCl/L 1,000 ML IV SCH (12:15)
[2017-11-05] MEDS: ONDANSETRON DISINTEGRATING 4 MG TAB PO PRN (19:31)
[2017-11-05] MEDS: TERAZOSIN HCL 5 MG CAP PO SCH (21:39)
[2017-11-05] MEDS: PRAVASTATIN SODIUM 20 MG TAB PO SCH (21:39)
[2017-11-05] MEDS: TAMSULOSIN HCL 0.4 MG CAP PO SCH (21:39)
[2017-11-05] MEDS: PRESERVISION AREDS2 FORMULA EYE VIT 1 EACH PO SCH (21:39)
[2017-11-06] MEDS: HEPARIN 5,000 UNIT/0.5 ML SYR SC SCH ×2 (05:10→14:38)
[2017-11-06 05:35] LABS: % IMMATURE GRANULYOCYTES 1.4 % (0.0-1.1); ABSOLUTE IMMATURE GRANULOCYTES 0.11 10^3/uL (0.00-0.10); ADD DIFF? NO; ADD MORPH? NO; ADD SCAN? YES; FRAGMENT RBC FLAG 0 (0-99); HEMATOCRIT 41.4 % (40.0-51.0); HEMOGLOBIN 14.6 g/dL (13.7-17.5); LEFT SHIFT FLG 10 (0-99); LIPEMIA HEMOLYSIS FLAG 90 (0-99); MEAN CELL HEMOGLOBIN 29.7 pg (27.9-34.1); MEAN CELL HEMOGLOBIN CONCENTR. 35.3 g/dL (32.4-36.7); MEAN CELL VOLUME 84.1 fL (81.5-99.8); MEAN PLATELET VOLUME 10.9 fL (8.7-11.7); PLATELET CLUMPS FLAG 20 (0-99); PLATELET COUNT 206 10^3/uL (150-400); RED BLOOD CELL COUNT 4.92 10^6/uL (4.40-6.38); RED CELL DISTRIBUTION WIDTH 14.4 % (11.5-15.2)
[2017-11-06 05:37] LABS: ATYPICAL LYMPHOCYTE FLAG 250 (0-99)
[2017-11-06 05:50] LABS: ALANINE AMINOTRANSFERASE 71 IU/L (21-72); ALBUMIN 3.3 g/dL (3.5-5.0); ALKALINE PHOSPHATASE 79 IU/L (38-126); ANION GAP 13 mEq/L (8-16); ASPARTATE AMINOTRANSFERASE 52 IU/L (17-59); BILIRUBIN,TOTAL 0.4 mg/dL (0.1-1.4); CALCIUM 8.5 mg/dL (8.5-10.4); CARBON DIOXIDE 23 mEq/l (22-31); CHLORIDE 108 mEq/L (97-110); CREATININE 1.1 mg/dL (0.7-1.3); GLOMERULAR FILTRATION RATE > 60; GLUCOSE 102 mg/dL (70-100); MAGNESIUM 1.6 mg/dL (1.6-2.3); POTASSIUM 3.7 mEq/L (3.5-5.2); SODIUM 144 mEq/L (134-144)
[2017-11-06 06:26] LABS: SCAN NEGATIVE
[2017-11-06 07:13] VITALS: RESP 18
[2017-11-06] MEDS ORDERED: POTASSIUM CL 20 MEQ TAB PO ONE (08:37)
[2017-11-06] MEDS: HYOSCYAMINE SULFATE 0.125 MG TAB PO PRN (09:53)
[2017-11-06] MEDS: MULTIVITAMINS 1 EACH TAB PO SCH (09:53)
[2017-11-06] MEDS: PANTOPRAZOLE SODIUM 40 MG TAB PO SCH (09:54)
[2017-11-06] MEDS: CHOLECALCIFEROL VIT D3 1,000 UNITS TAB PO SCH (09:54)
[2017-11-06] MEDS: buPROPion XL 150 MG TAB PO SCH (09:54)
[2017-11-06 10:50] VITALS: BP 138/35; PULSE 78; TEMP 98.5; O2SAT 92
[2017-11-06] MEDS: ACETAMINOPHEN 325 MG TAB PO PRN (11:45)
--- NOTE | 2017-11-06 12:27 | ASMTCMCOM ---
CM Note CM Note Notes: Pt still experiencing significant diarrhea but should still discharge home w/support of when medically stable. CM available for any changes. Date Signed: 11/06/2017 12:27 PM Electronically Signed By:Shelby Walters RN
--- NOTE | 2017-11-06 14:41 | PDDCSUM ---
Discharge Summary Discharge Summary: DISCHARGE SUMMARY FOLLOW-UP ITEMS: Speciation of Salmonella pending at time of discharge DATE OF ADMISSION: 11/02/2017 DATE OF DISCHARGE: 11/06/2017 DISCHARGE DIAGNOSES: 1. Acute renal failure 2. Polymicrobial bacterial enteritis 3. Acute metabolic acidosis 4. Acute hyponatremia 5. Acute hypokalemia 6. Acute polycythemia 7. Acute transaminitis CONSULTATIONS: Nephrology PROCEDURES / IMAGING: Ultrasound of the abdomen pelvis demonstrating no evidence of biliary obstruction CHIEF COMPLAINT: Acute abdominal cramping and diarrhea SUBJECTIVE: Patient is feeling well at time discharge, he continues to have small, formed bowel movements and he is tolerating oral intake PHYSICAL EXAM ON DISCHARGE: Systolic blood pressure is 110-140, heart rate 60-70, afebrile overnight, satting well on room air, alert awake oriented x3, no apparent distress, pain level 0/10 LABS ON DISCHARGE: Creatinine 1.1, potassium 3.7, serum sodium 144 HOSPITAL COURSE BY PROBLEM: The patient presented with acute renal failure as evidenced by a creatinine level of 7 in the setting of severe hypovolemia secondary to polymicrobial bacterial enteritis. The patient had been experiencing uncontrolled diarrhea prior to his presentation, and was unable to maintain oral adequate intake. He received aggressive IV fluids to treat his concomitant electrolyte disorders including hyponatremia, metabolic acidosis, hypokalemia. Nephrology was consulted, and the patient did not require renal replacement therapy. His renal function progressively improved as we were able to rehydrate him, and his creatinine is 1.1 time discharge. We did hold his home antihypertensive, losartan, and recommend that this not be re-initiated until he follows up with his primary care provider. The patient's GI PCR study was positive for Salmonella as well as 2 types of E coli. Salmonella speciation is pending at time discharge. I discussed the patient's case with Infectious Disease provider Dr. Simone Cano, and he agreed that given the patient's severity of illness, he would recommend 7 days of for quinolone therapy as well as liberalizing his oral diet so that the patient is able to maintain oral hydration and oral nutrition. We did not provide the patient with antidiarrheal therapy, and his bowel movements slowed and became formed. The patient did require as needed medications for nausea and abdominal spasms, and he be discharged with p.r.n. Zofran, Phenergan, hyoscyamine. DISCHARGE MEDICATIONS: Please see official discharge medication reconciliation sheet in chart , levofloxacin 750 mg x4 subsequent days, as needed Zofran, Phenergan, hyoscyamine. DISCHARGE INSTRUCTIONS: Please follow up with primary care provider upon returning to [place] and do not return to work until 11/13, in order to allow adequate time for recovery. TIME SPENT: Greater than 30 minutes were spent on direct patient care, as well as discharge planning and preparation.
[2017-11-06] MEDS: ONDANSETRON DISINTEGRATING 4 MG TAB PO PRN (15:51)
--- NOTE | 2017-11-07 14:00 | ASDISCHSUM ---
Discharge Information Plan Status:Home with No Needs Medically Cleared to Leave: Discharge Date:11/06/2017 05:40 PM CM D/C Disposition:Home, Routine, Self-Care ADT D/C Disposition:Home, Routine, Self-Care Projected Discharge Date:11/06/2017 05:40 PM Transportation at D/C: Discharge Delay Reason: Follow-Up Date:11/06/2017 05:40 PM Discharge Slot: Final Diagnosis: Placement Information Patient Contact Information Contact Name:SILVERIO Relationship: Address:[address] City:[place] Alternate Phone: State/Zip Code:[place] [address] Email: Financial Information Financial Class:HMO and PPO Plans Primary Plan Desc: OUT OF STATE PPO Primary Plan Number:[id number] Secondary Plan Desc: Secondary Plan Number: Assessment Information [facility] CM Progress Note CM Note CM Note Notes: Patient admitted with LEOPOLDO, likely due to severe dehydration. 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 Nephrology to see today. Will likely discharge independently, no therapies or case management ordered; however, case management can assist with any needs. Date Signed: 11/03/2017 09:51 AM Electronically Signed By:Crystal Rutherford RN [facility] CM Progress Note CM Note CM Note Notes: Pt still experiencing significant diarrhea but should still discharge home w/support of when medically stable. CM available for any changes. Date Signed: 11/06/2017 12:27 PM Electronically Signed By:Shelby Walters RN Intervention Information
== END 2017-11-06 17:40 | disposition home or self-care (01) | DRG 683 ==
LOC: F3E 22:17
PROVIDERS: ADMIT Internal Medicine; ATTEND Internal Medicine
DX: N17.9 Acute kidney failure, unspecified (principal); E86.0 Dehydration; A04.8 Other specified bacterial intestinal infections; B96.21 Shiga toxin-producing Escherichia coli [E. coli] [STEC] O157 as the cause of diseases classified elsewhere; E87.2 Acidosis; E87.1 Hypo-osmolality and hyponatremia; E87.6 Hypokalemia; D75.1 Secondary polycythemia; R94.5 Abnormal results of liver function studies; N40.0 Benign prostatic hyperplasia without lower urinary tract symptoms; R20.0 Anesthesia of skin; G09 Sequelae of inflammatory diseases of central nervous system
CPT/HCPCS: 82947-QW; 96374; J1956; J2405; J2550